=== PATIENT | male | born 1930 | race African-American/Black ===

== ENCOUNTER 2018-10-04 19:46 | Inpatient (IN) ==
[2018-10-04] MEDS ORDERED: LIDOCAINE 1% 20 ML VIAL ONE (20:38)
[2018-10-04] MEDS ORDERED: HEPARIN/NACL 0.9% 2 UNITS/ML 500 ML IV ONE ×2 (20:38→21:52)
[2018-10-04 20:52] LABS: Basophils # 0.1 10*3/uL (0.0-0.2); Basophils % 0.9 % (0.0-0.8); Eosinophils # 0.4 10*3/uL (0.0-0.87); Eosinophils % 4.3 % (0.00-10.9); Hematocrit 36.4 VOL% (42.0-52.0); Hemoglobin 11.4 GM/DL (14.0-18.0); Immature Granulocytes % 0.6 %; Immature Granulocytes Absolute 0.05 #; Lymphocytes # 1.4 10*3/uL (1.4-4.0); Lymphocytes % 16.7 % (21.2-54.2); Mean Corpuscular HGB Conc 31.3 GM/DL (32-36); Mean Corpuscular Volume 89.2 FL (87-102); Neutrophils % 68.5 % (38.7-73.9); Platelet Count 167 T/CUMM (130-400); Red Blood Count 4.08 MC/CUMM (3.8-5.5); Red Cell Distribution Width 13.1 % (9.3-17.3); White Blood Count 8.6 T/CUMM (4-12)
[2018-10-04] MEDS ORDERED: ALTEPLASE 6 MG in SODIUM CHLORIDE 0.9% 120 ML IV SCH (21:00)
[2018-10-04 21:04] LABS: PT Patient Result 10.6 SECS
[2018-10-04 21:10] LABS: Albumin 3.3 G/DL (3.4-5.0); Bilirubin,Total 1.1 MG/DL (0.2-1.0); Calcium 8.6 MG/DL (8.5-10.1); Osmolality,Calculated 292.7 MOS/KG (273-304); Total Protein 7.3 G/DL (6.4-8.3)
[2018-10-04 21:19] LABS: Eosinophils 3 % (0-10); Lymphocytes 16 % (20-55); Segmented Neutrophils 77 % (50-85); Total Cells Counted 100
[2018-10-04 21:20] LABS: Macrocytosis Slight; Platelet Estimate Adequate; Polychromasia Slight
[2018-10-04 21:21] LABS: Free T4 (Free Thyroxine) 1.18 NG/DL (0.76-1.46); Thyroid Stimulating Hormone 1.16 uIU/ml (0.358-3.74)
[2018-10-04] MEDS: SODIUM CHLORIDE 0.9% 1,000 ML IV SCH ×2 (21:24→22:29)
[2018-10-04] MEDS ORDERED: MIDAZOLAM 2 MG/2 ML VIAL ONE (21:41)
[2018-10-04] MEDS ORDERED: diphenhydrAMINE 50 MG/1 ML VIAL ONE (22:15)
[2018-10-04] MEDS ORDERED: MEPERIDINE 25 MG/1 ML VIAL IV PRN (23:00)
[2018-10-04] MEDS ORDERED: ONDANSETRON 4 MG/2 ML VIAL IV PRN (23:00)
[2018-10-04] MEDS ORDERED: LORazepam 2 MG/1 ML VIAL IV PRN (23:00)
[2018-10-04] MEDS ORDERED: POTASSIUM CHLORIDE 20 MEQ/15 ML UDCUP PO ONE (23:38)
[2018-10-04] MEDS ORDERED: POTASSIUM CHLORIDE RIDER 10 MEQ in PREMIX 1 EACH IV PRN (23:38)
[2018-10-05 00:36] LABS: PT Patient Result 10.7 SECS; Partial Thromboplastin Time 25.2 SECS (0-40)
[2018-10-05] MEDS ORDERED: hydrALAZINE 20 MG/1 ML VIAL IV PRN (00:38)
[2018-10-05] MEDS: HEPARIN DRIP 25,000 UNITS/500 ML PREMIX IV SCH ×2 (00:50)
[2018-10-05 06:24] LABS: PT Patient Result 11.2 SECS
[2018-10-05 06:33] LABS: Calcium 8.3 MG/DL (8.5-10.1)
[2018-10-05] MEDS ORDERED: POTASSIUM CHLORIDE 20 MEQ TABLET PO ONE ×2 (09:00→12:00)
[2018-10-05] MEDS ORDERED: INSULIN GLARGINE 100 UNIT/ML SUBCUT SCH (09:00)
[2018-10-05] MEDS: INSULIN GLARGINE 100 UNIT/ML SUBCUT SCH (09:45)
[2018-10-05] MEDS: METOPROLOL SUCCINATE XL 50 MG TABLET PO SCH ×2 (09:46→20:37)
[2018-10-05] MEDS: TAMSULOSIN 0.4 MG CAPSULE PO SCH (09:46)
[2018-10-05] MEDS: amLODIPine 10 MG TABLET PO SCH (09:46)
[2018-10-05] MEDS: ISOSORBIDE MONONITRATE 60 MG TABLET PO SCH (09:46)
[2018-10-05] MEDS: LOSARTAN 50 MG TABLET PO SCH (09:46)
[2018-10-05] MEDS: SIMVASTATIN 40 MG TABLET PO SCH (09:46)
[2018-10-05] MEDS: PANTOPRAZOLE 40 MG TABLET PO SCH (09:46)
[2018-10-05] MEDS: ASPIRIN CHEW 81 MG TABLET PO SCH (09:46)
[2018-10-05] MEDS: POTASSIUM CHLORIDE 20 MEQ TABLET PO SCH ×2 (09:46→10:27)
[2018-10-05 11:22] LABS: Partial Thromboplastin Time 25.6 SECS (0-40)
[2018-10-05 13:37] LABS: Apearance,Urine Slightly Hazy (Clear); Bacteria,Urine Occasional /HPF (Few); Bilirubin,Urine Negative (Negative); Blood, Urine Large mg/dL (Negative); Glucose,Urine (UA) >=500 mg/dL (Negative); Ketones,Urine Negative (Negative); Mucus,Urine Occasional /LPF (Occasional); Nitrite,Urine Negative (Negative); Protein,Urine >=500 MG/DL; RBC,Urine 100 /HPF (0-4); Urine Color Yellow (Yellow); Urine Specific Gravity 1.017 (1.001-1.035); Urine Urobilinogen < 2.0 EU/DL (0.2-1.0); WBC,Urine 142 /HPF (0-6)
[2018-10-05] MEDS: APIXABAN 5 MG TABLET PO SCH ×2 (15:01→20:39)
[2018-10-05] MEDS: INSULIN REGULAR 100 UNIT/ML SUBCUT SCH ×2 (17:30→20:40)
[2018-10-05] MEDS: SODIUM CHLORIDE 0.9% 1,000 ML IV SCH ×2 (20:55→20:56)
[2018-10-05 23:57] LABS: Partial Thromboplastin Time 29.7 SECS (0-40)
[2018-10-06] MEDS: HEPARIN DRIP 25,000 UNITS/500 ML PREMIX IV SCH ×2 (00:23→00:24)
[2018-10-06 03:37] LABS: Basophils # 0.1 10*3/uL (0.0-0.2); Basophils % 0.6 % (0.0-0.8); Eosinophils # 0.3 10*3/uL (0.0-0.87); Eosinophils % 2.5 % (0.00-10.9); Hematocrit 34.7 VOL% (42.0-52.0); Hemoglobin 11.1 GM/DL (14.0-18.0); Immature Granulocytes % 0.6 %; Immature Granulocytes Absolute 0.07 #; Lymphocytes # 1.2 10*3/uL (1.4-4.0); Lymphocytes % 11.4 % (21.2-54.2); Mean Platelet Volume 10.6 FL (9.6-12.0); Monocytes % 10.6 % (1.7-12.7); Neutrophils % 74.3 % (38.7-73.9); Platelet Count 148 T/CUMM (130-400); Red Cell Distribution Width 13.2 % (9.3-17.3); White Blood Count 10.8 T/CUMM (4-12)
[2018-10-06 03:50] LABS: Calcium 8.1 MG/DL (8.5-10.1); Osmolality,Calculated 284.1 MOS/KG (273-304)
[2018-10-06] MEDS: APIXABAN 5 MG TABLET PO SCH ×2 (09:21→21:08)
[2018-10-06] MEDS: amLODIPine 10 MG TABLET PO SCH (09:21)
[2018-10-06] MEDS: ISOSORBIDE MONONITRATE 60 MG TABLET PO SCH (09:21)
[2018-10-06] MEDS: POTASSIUM CHLORIDE 20 MEQ TABLET PO SCH (09:21)
[2018-10-06] MEDS: METOPROLOL TARTRATE 100 MG TABLET PO SCH ×2 (09:21→21:08)
[2018-10-06] MEDS: PANTOPRAZOLE 40 MG TABLET PO SCH (09:21)
[2018-10-06] MEDS: TAMSULOSIN 0.4 MG CAPSULE PO SCH (09:22)
[2018-10-06] MEDS: LOSARTAN 50 MG TABLET PO SCH (09:22)
[2018-10-06] MEDS: ASPIRIN CHEW 81 MG TABLET PO SCH (09:22)
[2018-10-06] MEDS: SIMVASTATIN 40 MG TABLET PO SCH (09:22)
[2018-10-06] MEDS: INSULIN REGULAR 100 UNIT/ML SUBCUT SCH ×4 (09:23→22:37)
[2018-10-06] MEDS: INSULIN GLARGINE 100 UNIT/ML SUBCUT SCH (09:24)
[2018-10-07 05:07] LABS: Basophils # 0.1 10*3/uL (0.0-0.2); Basophils % 0.5 % (0.0-0.8); Eosinophils # 0.3 10*3/uL (0.0-0.87); Eosinophils % 2.3 % (0.00-10.9); Hematocrit 31.6 VOL% (42.0-52.0); Hemoglobin 10.1 GM/DL (14.0-18.0); Immature Granulocytes % 0.8 %; Lymphocytes # 1.5 10*3/uL (1.4-4.0); Mean Corpuscular Volume 88.5 FL (87-102); Mean Platelet Volume 10.8 FL (9.6-12.0); Monocytes % 11.9 % (1.7-12.7); Neutrophils % 72.5 % (38.7-73.9); Platelet Count 169 T/CUMM (130-400); Red Blood Count 3.57 MC/CUMM (3.8-5.5); Red Cell Distribution Width 13.1 % (9.3-17.3); White Blood Count 12.2 T/CUMM (4-12)
[2018-10-07 05:39] LABS: Calcium 7.6 MG/DL (8.5-10.1); Osmolality,Calculated 284.3 MOS/KG (273-304)
[2018-10-07] MEDS: INSULIN REGULAR 100 UNIT/ML SUBCUT SCH ×4 (09:34→21:03)
[2018-10-07] MEDS: INSULIN GLARGINE 100 UNIT/ML SUBCUT SCH (09:34)
[2018-10-07] MEDS: POTASSIUM CHLORIDE 20 MEQ TABLET PO SCH (09:35)
[2018-10-07] MEDS: APIXABAN 5 MG TABLET PO SCH ×2 (09:35→21:03)
[2018-10-07] MEDS: ASPIRIN CHEW 81 MG TABLET PO SCH (09:35)
[2018-10-07] MEDS: LOSARTAN 50 MG TABLET PO SCH (09:35)
[2018-10-07] MEDS: METOPROLOL TARTRATE 100 MG TABLET PO SCH ×2 (09:36→21:03)
[2018-10-07] MEDS: ISOSORBIDE MONONITRATE 60 MG TABLET PO SCH (09:36)
[2018-10-07] MEDS: TAMSULOSIN 0.4 MG CAPSULE PO SCH (09:36)
[2018-10-07] MEDS: SIMVASTATIN 40 MG TABLET PO SCH (09:36)
[2018-10-07] MEDS: amLODIPine 10 MG TABLET PO SCH (09:36)
[2018-10-07] MEDS: PANTOPRAZOLE 40 MG TABLET PO SCH (09:38)
[2018-10-08 04:36] LABS: Basophils # 0.1 10*3/uL (0.0-0.2); Basophils % 0.5 % (0.0-0.8); Eosinophils # 0.1 10*3/uL (0.0-0.87); Eosinophils % 1.1 % (0.00-10.9); Hematocrit 31.3 VOL% (42.0-52.0); Hemoglobin 9.9 GM/DL (14.0-18.0); Immature Granulocytes % 0.7 %; Immature Granulocytes Absolute 0.09 #; Lymphocytes % 8.2 % (21.2-54.2); Mean Corpuscular HGB Conc 31.6 GM/DL (32-36); Mean Corpuscular Volume 88.4 FL (87-102); Mean Platelet Volume 10.2 FL (9.6-12.0); Monocytes % 11.5 % (1.7-12.7); Platelet Count 171 T/CUMM (130-400); Red Blood Count 3.54 MC/CUMM (3.8-5.5); Red Cell Distribution Width 12.8 % (9.3-17.3); White Blood Count 12.2 T/CUMM (4-12)
[2018-10-08 05:01] LABS: Calcium 7.9 MG/DL (8.5-10.1); Osmolality,Calculated 281.3 MOS/KG (273-304)
[2018-10-08] MEDS: APIXABAN 5 MG TABLET PO SCH ×2 (08:43→21:38)
[2018-10-08] MEDS: TAMSULOSIN 0.4 MG CAPSULE PO SCH (08:43)
[2018-10-08] MEDS: PANTOPRAZOLE 40 MG TABLET PO SCH (08:43)
[2018-10-08] MEDS: amLODIPine 10 MG TABLET PO SCH (08:43)
[2018-10-08] MEDS: LOSARTAN 50 MG TABLET PO SCH (08:44)
[2018-10-08] MEDS: POTASSIUM CHLORIDE 20 MEQ TABLET PO SCH (08:44)
[2018-10-08] MEDS: SIMVASTATIN 40 MG TABLET PO SCH (08:44)
[2018-10-08] MEDS: ASPIRIN CHEW 81 MG TABLET PO SCH (08:44)
[2018-10-08] MEDS: METOPROLOL TARTRATE 100 MG TABLET PO SCH ×2 (08:44→21:39)
[2018-10-08] MEDS: ISOSORBIDE MONONITRATE 60 MG TABLET PO SCH (08:44)
[2018-10-08] MEDS: INSULIN GLARGINE 100 UNIT/ML SUBCUT SCH (08:45)
[2018-10-08] MEDS: INSULIN REGULAR 100 UNIT/ML SUBCUT SCH ×4 (08:45→21:38)
[2018-10-09 05:50] LABS: Calcium 8.3 MG/DL (8.5-10.1)
[2018-10-09] MEDS: amLODIPine 10 MG TABLET PO SCH (09:30)
[2018-10-09] MEDS: TAMSULOSIN 0.4 MG CAPSULE PO SCH (09:30)
[2018-10-09] MEDS: APIXABAN 5 MG TABLET PO SCH ×2 (09:30→22:00)
[2018-10-09] MEDS: POTASSIUM CHLORIDE 20 MEQ TABLET PO SCH (09:31)
[2018-10-09] MEDS: PANTOPRAZOLE 40 MG TABLET PO SCH (09:31)
[2018-10-09] MEDS: ISOSORBIDE MONONITRATE 60 MG TABLET PO SCH (09:31)
[2018-10-09] MEDS: SIMVASTATIN 40 MG TABLET PO SCH (09:31)
[2018-10-09] MEDS: LOSARTAN 50 MG TABLET PO SCH (09:32)
[2018-10-09] MEDS: ASPIRIN CHEW 81 MG TABLET PO SCH (09:32)
[2018-10-09] MEDS: METOPROLOL TARTRATE 100 MG TABLET PO SCH ×2 (09:33→22:00)
[2018-10-09] MEDS: INSULIN REGULAR 100 UNIT/ML SUBCUT SCH ×4 (11:56→22:08)
[2018-10-09] MEDS: INSULIN GLARGINE 100 UNIT/ML SUBCUT SCH (11:56)
[2018-10-09] MEDS ORDERED: diphenhydrAMINE CAP 25 MG CAPSULE PO PRN (15:04)
[2018-10-09] MEDS ORDERED: MAGNESIUM HYDROXIDE SUSP 30 ML UDCUP PO PRN (15:04)
[2018-10-10] MEDS ORDERED: POTASSIUM CHLORIDE 20 MEQ TABLET PO ONE (08:07)
[2018-10-10] MEDS: TAMSULOSIN 0.4 MG CAPSULE PO SCH (08:29)
[2018-10-10] MEDS: amLODIPine 10 MG TABLET PO SCH (08:29)
[2018-10-10] MEDS: METOPROLOL TARTRATE 100 MG TABLET PO SCH ×2 (08:30→22:08)
[2018-10-10] MEDS: APIXABAN 5 MG TABLET PO SCH ×2 (08:30→22:08)
[2018-10-10] MEDS: LOSARTAN 50 MG TABLET PO SCH (08:30)
[2018-10-10] MEDS: PANTOPRAZOLE 40 MG TABLET PO SCH (08:30)
[2018-10-10] MEDS: SIMVASTATIN 40 MG TABLET PO SCH (08:30)
[2018-10-10] MEDS: ASPIRIN CHEW 81 MG TABLET PO SCH (08:30)
[2018-10-10] MEDS: ISOSORBIDE MONONITRATE 60 MG TABLET PO SCH (08:31)
[2018-10-10] MEDS: INSULIN GLARGINE 100 UNIT/ML SUBCUT SCH (08:31)
[2018-10-10 08:46] LABS: Basophils # 0.1 10*3/uL (0.0-0.2); Basophils % 0.7 % (0.0-0.8); Eosinophils # 0.2 10*3/uL (0.0-0.87); Eosinophils % 2.1 % (0.00-10.9); Hematocrit 31.5 VOL% (42.0-52.0); Hemoglobin 9.9 GM/DL (14.0-18.0); Immature Granulocytes % 0.5 %; Immature Granulocytes Absolute 0.05 #; Lymphocytes # 1.3 10*3/uL (1.4-4.0); Lymphocytes % 14.4 % (21.2-54.2); Mean Corpuscular HGB Conc 31.4 GM/DL (32-36); Mean Corpuscular Volume 90.5 FL (87-102); Mean Platelet Volume 10.1 FL (9.6-12.0); Monocytes % 10.9 % (1.7-12.7); Neutrophils % 71.4 % (38.7-73.9); Platelet Count 281 T/CUMM (130-400); Red Blood Count 3.48 MC/CUMM (3.8-5.5); Red Cell Distribution Width 12.7 % (9.3-17.3); White Blood Count 9.1 T/CUMM (4-12)
[2018-10-10] MEDS: INSULIN REGULAR 100 UNIT/ML SUBCUT SCH ×4 (08:58→22:10)
[2018-10-10 09:19] LABS: Calcium 8.3 MG/DL (8.5-10.1); Osmolality,Calculated 283.3 MOS/KG (273-304)
[2018-10-10] MEDS: POTASSIUM CHLORIDE 20 MEQ TABLET PO SCH (13:14)
[2018-10-10] MEDS ORDERED: TUBERCULIN SKIN TEST 0.1 ML SYRINGE INTRADERM ONE (16:30)
[2018-10-11 05:35] LABS: Basophils # 0.1 10*3/uL (0.0-0.2); Eosinophils # 0.3 10*3/uL (0.0-0.87); Eosinophils % 3.9 % (0.00-10.9); Hematocrit 28.5 VOL% (42.0-52.0); Hemoglobin 8.9 GM/DL (14.0-18.0); Immature Granulocytes % 0.6 %; Immature Granulocytes Absolute 0.05 #; Lymphocytes # 1.4 10*3/uL (1.4-4.0); Lymphocytes % 16.6 % (21.2-54.2); Mean Corpuscular HGB Conc 31.2 GM/DL (32-36); Mean Corpuscular Volume 89.3 FL (87-102); Mean Platelet Volume 10.1 FL (9.6-12.0); Monocytes % 12.3 % (1.7-12.7); Neutrophils % 65.6 % (38.7-73.9); Platelet Count 285 T/CUMM (130-400); Red Blood Count 3.19 MC/CUMM (3.8-5.5); Red Cell Distribution Width 12.8 % (9.3-17.3); White Blood Count 8.3 T/CUMM (4-12)
[2018-10-11 06:03] LABS: Calcium 8.3 MG/DL (8.5-10.1); Osmolality,Calculated 289.8 MOS/KG (273-304)
[2018-10-11] MEDS: INSULIN REGULAR 100 UNIT/ML SUBCUT SCH ×4 (09:11→21:50)
[2018-10-11] MEDS: ISOSORBIDE MONONITRATE 60 MG TABLET PO SCH (09:12)
[2018-10-11] MEDS: TAMSULOSIN 0.4 MG CAPSULE PO SCH (09:12)
[2018-10-11] MEDS: INSULIN GLARGINE 100 UNIT/ML SUBCUT SCH (09:12)
[2018-10-11] MEDS: PANTOPRAZOLE 40 MG TABLET PO SCH (09:13)
[2018-10-11] MEDS: LOSARTAN 50 MG TABLET PO SCH (09:13)
[2018-10-11] MEDS: APIXABAN 5 MG TABLET PO SCH ×2 (09:13→21:50)
[2018-10-11] MEDS: amLODIPine 10 MG TABLET PO SCH (09:14)
[2018-10-11] MEDS: METOPROLOL TARTRATE 100 MG TABLET PO SCH ×2 (09:14→21:50)
[2018-10-11] MEDS: SIMVASTATIN 40 MG TABLET PO SCH (09:14)
[2018-10-11] MEDS: POTASSIUM CHLORIDE 20 MEQ TABLET PO SCH (09:14)
[2018-10-11] MEDS: ASPIRIN CHEW 81 MG TABLET PO SCH (09:14)
[2018-10-12] MEDS: INSULIN REGULAR 100 UNIT/ML SUBCUT SCH ×4 (07:33→21:32)
[2018-10-12] MEDS: POTASSIUM CHLORIDE 20 MEQ TABLET PO SCH (08:52)
[2018-10-12] MEDS: ASPIRIN CHEW 81 MG TABLET PO SCH (08:52)
[2018-10-12] MEDS: METOPROLOL TARTRATE 100 MG TABLET PO SCH ×2 (08:52→21:32)
[2018-10-12] MEDS: LOSARTAN 50 MG TABLET PO SCH (08:53)
[2018-10-12] MEDS: APIXABAN 5 MG TABLET PO SCH ×2 (08:53→21:32)
[2018-10-12] MEDS: ISOSORBIDE MONONITRATE 60 MG TABLET PO SCH (08:53)
[2018-10-12] MEDS: SIMVASTATIN 40 MG TABLET PO SCH (08:53)
[2018-10-12] MEDS: amLODIPine 10 MG TABLET PO SCH (08:53)
[2018-10-12] MEDS: PANTOPRAZOLE 40 MG TABLET PO SCH (08:53)
[2018-10-12] MEDS: TAMSULOSIN 0.4 MG CAPSULE PO SCH (08:53)
[2018-10-12] MEDS: INSULIN GLARGINE 100 UNIT/ML SUBCUT SCH (09:39)
[2018-10-13 05:23] LABS: Basophils # 0.1 10*3/uL (0.0-0.2); Basophils % 1.3 % (0.0-0.8); Eosinophils # 0.2 10*3/uL (0.0-0.87); Eosinophils % 3.4 % (0.00-10.9); Hematocrit 27.3 VOL% (42.0-52.0); Hemoglobin 8.6 GM/DL (14.0-18.0); Immature Granulocytes % 0.6 %; Immature Granulocytes Absolute 0.04 #; Lymphocytes # 1.3 10*3/uL (1.4-4.0); Mean Corpuscular HGB Conc 31.5 GM/DL (32-36); Mean Corpuscular Volume 88.9 FL (87-102); Mean Platelet Volume 9.8 FL (9.6-12.0); Monocytes % 11.3 % (1.7-12.7); Neutrophils % 65.4 % (38.7-73.9); Platelet Count 349 T/CUMM (130-400); Red Blood Count 3.07 MC/CUMM (3.8-5.5); Red Cell Distribution Width 12.7 % (9.3-17.3); White Blood Count 7.1 T/CUMM (4-12)
[2018-10-13 05:53] LABS: Calcium 8.1 MG/DL (8.5-10.1); Osmolality,Calculated 285.1 MOS/KG (273-304)
[2018-10-13] MEDS: INSULIN REGULAR 100 UNIT/ML SUBCUT SCH ×3 (08:59→16:13)
[2018-10-13] MEDS: INSULIN GLARGINE 100 UNIT/ML SUBCUT SCH (09:02)
[2018-10-13] MEDS: METOPROLOL TARTRATE 100 MG TABLET PO SCH (09:03)
[2018-10-13] MEDS: LOSARTAN 50 MG TABLET PO SCH (09:03)
[2018-10-13] MEDS: APIXABAN 5 MG TABLET PO SCH (09:03)
[2018-10-13] MEDS: POTASSIUM CHLORIDE 20 MEQ TABLET PO SCH (09:03)
[2018-10-13] MEDS: PANTOPRAZOLE 40 MG TABLET PO SCH (09:03)
[2018-10-13] MEDS: ISOSORBIDE MONONITRATE 60 MG TABLET PO SCH (09:04)
[2018-10-13] MEDS: TAMSULOSIN 0.4 MG CAPSULE PO SCH (09:04)
[2018-10-13] MEDS: ASPIRIN CHEW 81 MG TABLET PO SCH (09:04)
[2018-10-13] MEDS: amLODIPine 10 MG TABLET PO SCH (09:04)
[2018-10-13] MEDS: SIMVASTATIN 40 MG TABLET PO SCH (09:25)
[2018-10-13 16:20] VITALS: BP 123/80
== END 2018-10-13 18:37 | disposition home or self-care (01) | DRG 167 ==
LOC: N.ED 19:46 → N.CL 21:10 → N.EDINP 21:10 → N.ICU 21:10 → N.CL 21:41 → N.ICU 23:00 → UNDODEPSDC 10-05 06:44 → N.TELEN 10-06 12:09
PROVIDERS: ADMIT Internal Medicine Cardiovascular Disease; ATTEND Internal Medicine Cardiovascular Disease

== ENCOUNTER 2018-12-07 18:05 | Observation (INO) ==
[2018-12-07] MEDS ORDERED: MORPHINE 4 MG/1 ML VIAL IV PRN (21:12)
[2018-12-07] MEDS ORDERED: DEXTROSE 50% 25 GM/50 ML VIAL IV PRN (21:56)
[2018-12-07] MEDS ORDERED: GLUCAGON 1 MG VIAL IM PRN (21:56)
[2018-12-07] MEDS: METOPROLOL TARTRATE 100 MG TABLET PO SCH (22:50)
[2018-12-07] MEDS: APIXABAN 5 MG TABLET PO SCH (22:50)
[2018-12-07] MEDS: SIMVASTATIN 40 MG TABLET PO SCH (22:50)
[2018-12-08] MEDS: INSULIN REGULAR 100 UNIT/ML SUBCUT SCH ×5 (02:54→21:16)
[2018-12-08] MEDS ORDERED: REGADENOSON 0.4 MG/5 ML SYRINGE IV ONE (10:35)
[2018-12-08 12:29] LABS: Basophils # 0.1 10*3/uL (0.0-0.2); Basophils % 1.1 % (0.0-0.8); Eosinophils # 0.2 10*3/uL (0.0-0.87); Eosinophils % 3.4 % (0.00-10.9); Hematocrit 40.1 VOL% (42.0-52.0); Hemoglobin 13.4 GM/DL (14.0-18.0); Immature Granulocytes % 0.4 %; Immature Granulocytes Absolute 0.03 #; Lymphocytes # 1.5 10*3/uL (1.4-4.0); Lymphocytes % 20.5 % (21.2-54.2); Mean Corpuscular HGB Conc 33.4 GM/DL (32-36); Mean Corpuscular Volume 87.9 FL (87-102); Mean Platelet Volume 10.3 FL (9.6-12.0); Monocytes % 9.5 % (1.7-12.7); Neutrophils % 65.1 % (38.7-73.9); Platelet Count 181 T/CUMM (130-400); Red Blood Count 4.56 MC/CUMM (3.8-5.5); Red Cell Distribution Width 13.2 % (9.3-17.3); White Blood Count 7.1 T/CUMM (4-12)
[2018-12-08 12:46] LABS: Calcium 8.5 MG/DL (8.5-10.1); Osmolality,Calculated 286.3 MOS/KG (273-304)
[2018-12-08] MEDS: TAMSULOSIN 0.4 MG CAPSULE PO SCH (15:18)
[2018-12-08] MEDS: hydroCHLOROthiazide 12.5 MG CAPSULE PO SCH (15:18)
[2018-12-08] MEDS: LOSARTAN 50 MG TABLET PO SCH (15:19)
[2018-12-08] MEDS: METOPROLOL TARTRATE 100 MG TABLET PO SCH ×2 (15:20→21:18)
[2018-12-08] MEDS: ASPIRIN CHEW 81 MG TABLET PO SCH (15:20)
[2018-12-08] MEDS: ISOSORBIDE MONONITRATE 60 MG TABLET PO SCH (15:20)
[2018-12-08] MEDS: amLODIPine 10 MG TABLET PO SCH (15:20)
[2018-12-08] MEDS: APIXABAN 5 MG TABLET PO SCH ×2 (15:20→21:17)
[2018-12-08] MEDS: POTASSIUM CHLORIDE 20 MEQ TABLET PO SCH (15:20)
[2018-12-08] MEDS: POTASSIUM CHLORIDE 20 MEQ TABLET PO PRN ×3 (17:24→21:16)
[2018-12-08] MEDS: SIMVASTATIN 40 MG TABLET PO SCH (21:17)
[2018-12-09 04:33] LABS: Basophils # 0.1 10*3/uL (0.0-0.2); Basophils % 0.8 % (0.0-0.8); Eosinophils # 0.1 10*3/uL (0.0-0.87); Eosinophils % 1.4 % (0.00-10.9); Hematocrit 36.3 VOL% (42.0-52.0); Hemoglobin 11.9 GM/DL (14.0-18.0); Immature Granulocytes % 0.3 %; Immature Granulocytes Absolute 0.02 #; Lymphocytes # 1.2 10*3/uL (1.4-4.0); Lymphocytes % 15.7 % (21.2-54.2); Mean Corpuscular HGB Conc 32.8 GM/DL (32-36); Mean Corpuscular Volume 88.5 FL (87-102); Mean Platelet Volume 10.8 FL (9.6-12.0); Monocytes % 10.2 % (1.7-12.7); Neutrophils % 71.6 % (38.7-73.9); Platelet Count 178 T/CUMM (130-400); Red Cell Distribution Width 13.2 % (9.3-17.3); White Blood Count 7.6 T/CUMM (4-12)
[2018-12-09 04:56] LABS: Calcium 8.6 MG/DL (8.5-10.1)
[2018-12-09] MEDS: amLODIPine 10 MG TABLET PO SCH (08:49)
[2018-12-09] MEDS: ASPIRIN CHEW 81 MG TABLET PO SCH (08:49)
[2018-12-09] MEDS: ISOSORBIDE MONONITRATE 60 MG TABLET PO SCH (08:50)
[2018-12-09] MEDS: METOPROLOL TARTRATE 100 MG TABLET PO SCH (08:50)
[2018-12-09] MEDS: TAMSULOSIN 0.4 MG CAPSULE PO SCH (08:50)
[2018-12-09] MEDS: hydroCHLOROthiazide 12.5 MG CAPSULE PO SCH (08:50)
[2018-12-09] MEDS: LOSARTAN 50 MG TABLET PO SCH (08:50)
[2018-12-09] MEDS: APIXABAN 5 MG TABLET PO SCH (08:50)
[2018-12-09] MEDS: INSULIN REGULAR 100 UNIT/ML SUBCUT SCH ×2 (08:51→12:55)
[2018-12-09] MEDS: POTASSIUM CHLORIDE 20 MEQ TABLET PO SCH (08:51)
[2018-12-09 12:38] VITALS: BP 140/73
== END 2018-12-09 16:40 | disposition home health service (06) ==
LOC: N.TELES → SUATTDRO 20:32
PROVIDERS: ADMIT Internal Medicine; ATTEND Internal Medicine